=== PATIENT | male | born 1960 | race Caucasian/White ===

== ENCOUNTER 2016-07-18 07:44 | Inpatient (IN) | payer OTHER ==
[2016-07-18] MEDS: MIDAZOLAM 2 MG/2 ML VIAL IVP ONE ×3 (07:50→08:11)
[2016-07-18] MEDS ORDERED: LIDOCAINE 2% INJ 20 MG/ML SQ ONE ×3 (07:53→07:58)
[2016-07-18] MEDS: VERAPAMIL SYRINGE (5 MG/10 ML) INTRAARTER ONE ×2 (08:02→08:24)
[2016-07-18] MEDS ORDERED: PRASUGREL 10 MG TAB ONE (08:05)
[2016-07-18] MEDS ORDERED: HYDROmorphone 2 MG/ML 1 ML SYRINGE ONE (08:06)
[2016-07-18] MEDS ORDERED: HYDROmorphone 2 MG/ML 1 ML SYRINGE IVP ONE (08:07)
[2016-07-18] MEDS ORDERED: BIVALIRUDIN BOLUS 250 MG/50 ML IV ONE (08:08)
[2016-07-18] MEDS ORDERED: PRASUGREL 10 MG TAB PO ONE (08:09)
[2016-07-18] MEDS ORDERED: BIVALIRUDIN 250 MG in SODIUM CHLORIDE 0.9% 50 ML IV ONE (08:09)
[2016-07-18] MEDS ORDERED: NITROGLYCERIN 1000MCG/10ML SYRINGE INTRACORON ONE (08:12)
[2016-07-18] MEDS ORDERED: MORPHINE SULFATE 4 MG/ML SYRINGE ONE (08:17)
[2016-07-18] MEDS ORDERED: MORPHINE SULFATE 4 MG/ML SYRINGE IV ONE (08:20)
[2016-07-18] MEDS ORDERED: FUROSEMIDE 10 MG/ML 4 ML VIAL ONE (08:20)
[2016-07-18] MEDS ORDERED: FUROSEMIDE 10 MG/ML 4 ML VIAL IV ONE (08:22)
[2016-07-18] MEDS: VERAPAMIL 2.5 MG/ML 2 ML AMP ONE ×2 (08:24→08:27)
[2016-07-18] MEDS ORDERED: IOHEXOL 350 MG/ML 100 ML BOTTLE INJ ONE (08:28)
[2016-07-18] MEDS ORDERED: SODIUM CHLORIDE 0.9% 1,000 ML IV ONE (08:32)
[2016-07-18] MEDS ORDERED: RX INFO: IV CONTRAST WAS GIVEN 1 EACH MISC MISCELLANE PRN (08:39)
[2016-07-18] MEDS ORDERED: ATROPINE SULFATE 0.1 MG/ML 10ML SYRINGE IV PRN (08:39)
[2016-07-18] MEDS ORDERED: ZOLPIDEM 5 MG TAB PO PRN (08:39)
[2016-07-18] MEDS ORDERED: MAG HYDROX/AL HYDROX/SIMETH 30 ML CUP PO PRN (08:39)
[2016-07-18] MEDS ORDERED: NITROGLYCERIN SL TABS 0.4 MG TAB SUBLINGUAL PRN (08:39)
[2016-07-18] MEDS ORDERED: SODIUM CHLORIDE 0.9% 1,000 ML IV SCH (08:45)
--- NOTE | 2016-07-18 08:48 | P.CRDCN ---
History of Present Illness Consult date: 07/18/16 Chief complaint: chest pain History of present illness: This is a pleasant 55-year-old gentleman was no significant past medical history brought by ambulance to the emergency room with a chest discomfort. He was in his usual state of health total 6:00 this morning when he started experiencing chest discomfort. Ambulance was called and the patient was found to be an acute inferior ST elevation myocardial infarction he was brought to the emergency room. He underwent an emergent heart catheterization and was found to have acute total occlusion of the distal right coronary artery with a plaque rupture and thrombus formation. He underwent successful stenting of the RCA using a drug- eluting stent with a good angiographic results. No residual disease left in the right coronary artery and he has normal left coronary system. The patient tolerated the procedure very well. By the end of the procedure he was normotensive and his heart rate was within normal limits. The procedure was performed from the right radial artery. The patient is not aware of any history of diabetes or hypertension or dyslipidemia. As a matter of fact he never seen a physician. He does not smoke or drink alcohol. He does not have any family history of coronary artery disease. Medications and Allergies Allergies Allergy/AdvReac Type Severity Reaction Status Date / Time No Known Allergies Allergy Verified 07/18/16 07:57 Physical Exam Vitals: Intake and Output 07/17/16 07/18/16 07/18/16 22:59 06:59 14:59 Intake Total 100 Balance 100 Intake: IV 100 Other: Weight 82.024 kg Patient Weight 07/19/16 06:59 Weight 82.024 kg - Constitutional General appearance: no acute distress - Respiratory Respiratory: bilateral: CTA - Cardiovascular Rhythm: regular Heart sounds: normal: S1, S2 Results Current Medications Generic Name Dose Route Start Last Admin Trade Name Freq PRN Reason Stop Dose Admin Al Hydroxide/Mg Hydroxide 30 ml 07/18/16 08:39 Maalox PO Q4HR PRN Heartburn Aspirin 325 mg 07/18/16 09:00 Aspirin PO DAILY TRISHA Atorvastatin Calcium 80 mg 07/18/16 21:00 Lipitor PO HS TRISHA Atropine Sulfate 0.5 mg 07/18/16 08:39 Atropine IV ONCE PRN Symptomatic Bradycardia Sodium Chloride 1,000 mls @ 100 mls/hr 07/18/16 08:45 Saline 0.9% IV 07/18/16 14:46 .Q10H TRISHA Lisinopril 10 mg 07/18/16 09:00 Zestril PO DAILY TRISHA Metoprolol Tartrate 25 mg 07/18/16 09:00 Lopressor PO BID TRISHA Miscellaneous Information 1 each 07/18/16 08:39 Rx Info: Iv Contrast Was Given MISCELLANE 07/20/16 08:39 DAILY PRN Per Protocol Nitroglycerin 0.4 mg 07/18/16 08:39 Nitrostat SUBLINGUAL Q5M PRN Chest Pain Prasugrel 10 mg 07/19/16 09:00 Effient PO DAILY TRISHA Zolpidem Tartrate 5 mg 07/18/16 08:39 Ambien PO HS PRN Insomnia Intake and Output 07/17/16 07/18/16 07/18/16 22:59 06:59 14:59 Intake Total 100 Balance 100 Intake: IV 100 Other: Weight 82.024 kg Patient Weight 07/19/16 06:59 Weight 82.024 kg Assessment and Plan Plan: Assessment Acute inferior ST elevation myocardial infarction Status post a stenting of the RCA Plan Dual antiplatelet therapy Aggressive cholesterol control An echocardiogram was Doppler Follow-up with the patient
[2016-07-18] MEDS ORDERED: hydrALAZINE HCL 20 MG/ML 1 ML VIAL ONE (10:30)
[2016-07-18] MEDS: hydrALAZINE HCL 20 MG/ML 1 ML VIAL IVP STA ×2 (10:43→10:45)
[2016-07-18] MEDS: ONDANSETRON 4 MG/2 ML VIAL IVP PRN ×2 (10:54→20:29)
[2016-07-18] MEDS: ASPIRIN 325 MG TAB PO SCH (11:01)
[2016-07-18] MEDS: METOPROLOL TARTRATE 25 MG TAB PO SCH ×2 (11:11→20:33)
[2016-07-18] MEDS: LISINOPRIL 10 MG TAB PO SCH (12:17)
[2016-07-18] MEDS ORDERED: hydrALAZINE HCL 20 MG/ML 1 ML VIAL IVP PRN (15:32)
[2016-07-18] MEDS ORDERED: HYDROmorphone 1 MG/ML 1 ML SYRINGE IVP PRN (15:32)
--- NOTE | 2016-07-18 18:22 | CC ---
DATE OF SERVICE: 07/18/2016 PERFORMING PHYSICIAN: Hussain Dior M.D., studio model. PROCEDURES PERFORMED: 1. Selective right and left coronary angiogram. 2. Successful stenting of the distal right coronary artery using a 3.5 x 18 mm Xience TRAM, with good angiographic results. INDICATION: This is a pleasant 55-year-old gentleman who presented to the hospital with acute inferior ST-elevation myocardial infarction. The decision was made toward emergent heart catheterization and possible percutaneous coronary intervention. APPROACH: Right radial artery. COMPLICATIONS: None. LEVEL OF SEDATION: Moderate. PROCEDURE DESCRIPTION: After obtaining informed consent, the patient was brought to the cardiac clinical lab clerk. The right radial artery was cannulated using micropuncture technique. The micropuncture wire passed easily. Then I placed a 6 Somali sheath in the right radial artery. Subsequently I did selective right and left coronary angiogram using JR4 and JL3.5 catheters. Then I intervened on the RCA. Please see separate paragraph for that. SELECTIVE CORONARY ANGIOGRAM: 1. The right coronary artery is a large-caliber vessel and it is a dominant vessel. The right coronary artery is 100% occluded acutely in the distal portion. 2. The left main is angiographically normal. It bifurcates into the left circumflex and left anterior descending artery. 3. The left circumflex is a large-caliber vessel. It is a non-dominant vessel. The left circumflex is angiographically normal. It gives rise to 3 obtuse marginal branches. The first obtuse marginal branch has a high takeoff, almost likely ramus, and it is angiographically normally. The mid left circumflex gives rise to a second OM branch, which appeared to be angiographically normal. Distally there is a third OM which seems to be angiographically normal. 4. Left anterior descending artery. The proximal LAD appeared to be angiographically normal. The mid LAD is normal and gives rise to 2 diagonal branches; both are angiographically normal. The LAD distally is angiographically normal. PCI OF THE RCA: Anticoagulation was initiated using Angiomax. Subsequently I took a JR4 guiding catheter and the RCA was engaged. A Whisper wire was used to wire the right coronary artery. Subsequently I did PTCA ballooning using ( ) x 12 mm of balloon. Then I deployed a 3.5 x 18 mm Xience TRAM, where the stent was positioned under fluoroscopy guidance, and then it was deployed under 14 atmospheres for 20 seconds. The following angiogram showed good angiographic results without perforation and without dissection, with excellent flow. CONCLUSION: 1. Acute inferior ST-elevation myocardial infarction. 2. Acute total occlusion of the distal right coronary artery. 3. Successful stenting of the distal right coronary artery using a 3.75 x 18 mm Xience TRAM, with good angiographic results. 4. Normal left coronary artery system. POST-PROCEDURE MANAGEMENT: 1. Dual antiplatelet therapy. 2. Risk factor modifications. 3. Followup with the patient.
[2016-07-18] MEDS: ATORVASTATIN 80 MG TAB PO SCH (20:33)
[2016-07-19 04:56] LABS: Basophils % (A) 0 %; CH 34.1; Eosinophils # (A) 0.1 k/uL (0-0.7); Eosinophils % (A) 1 %; HCT 47.8 % (39.0-53.0); HDW 2.58; HGB 16.3 gm/dL (13.0-17.5); Luc # (Auto) 0.33; Luc % (Auto) 3; Lymphocytes # (A) 2.1 k/uL (1.0-4.8); Lymphocytes % (A) 17 %; MCH 33.4 pg (25.0-35.0); MCHC 34.1 g/dL (31.0-37.0); MCV 98.2 fL (80.0-100.0); Mean Platelet Volume 6.7; Monocytes # (A) 0.7 k/uL (0-1.0); Monocytes % (A) 6 %; Neutrophils # (A) 9.6 k/uL (1.3-7.7); Neutrophils % (A) 74 %; RBC 4.87 m/uL (4.30-5.90); WBC 12.9 k/uL (3.8-10.6); WBC (Perox) 13.22
[2016-07-19 05:28] LABS: Anion Gap 6 mmol/L; Blood Urea Nitrogen 12 mg/dL (9-20); Calcium 9.2 mg/dL (8.4-10.2); Carbon Dioxide 23 mmol/L (22-30); Chloride 104 mmol/L (98-107); Glucose 111 mg/dL (74-99); Non-African American GFR(MDRD) >60 (>60 ml/min/1.73 sqM); Potassium 4.1 mmol/L (3.5-5.1); Sodium 133 mmol/L (137-145)
[2016-07-19] MEDS: METOPROLOL TARTRATE 25 MG TAB PO SCH ×2 (09:12→20:13)
[2016-07-19] MEDS: ASPIRIN 325 MG TAB PO SCH (09:12)
[2016-07-19] MEDS: LISINOPRIL 10 MG TAB PO SCH (09:12)
[2016-07-19] MEDS: PRASUGREL 10 MG TAB PO SCH (09:12)
--- NOTE | 2016-07-19 10:56 | ECHOF ---
Referral Reason:stemi MEASUREMENTS -------- HEIGHT: 185.4 cm WEIGHT: 81.6 kg BP: 150/102 RVIDd: 2.7 cm (< 3.3) IVSd: 1.1 cm (0.6 - 1.1) LVIDd: 4.4 cm (3.9 - 5.3) LVPWd: 1.2 cm (0.6 - 1.1) IVSs: 1.7 cm LVIDs: 2.8 cm LVPWs: 1.6 cm LA Diam: 3.0 cm (2.7 - 3.8) LAESV Index (A-L): 18.38 ml/m Ao Diam: 3.5 cm (2.0 - 3.7) AV Cusp: 2.0 cm (1.5 - 2.6) LA Diam: 2.6 cm (2.7 - 3.8) MV EXCURSION: 13.189 mm (> 18.000) MV EF SLOPE: 82 mm/s (70 - 150) EPSS: 0.5 cm MV E Jay: 0.73 m/s MV DecT: 208 ms MV A Jay: 0.54 m/s MV E/A Ratio: 1.35 FINDINGS -------- Sinus rhythm. This was a technically adequate study. The left ventricular size is normal. There is borderline concentric left ventricular hypertrophy. Overall left ventricular systolic function is mild-moderately impaired with, an EF between 40 - 45 %. Basal inferior LV wall motion is hypokinetic. Mid posterior LV wall motion is hypokinetic. Mid inferior LV wall motion is hypokinetic. Apical inferior LV wall motion is hypokinetic. The right ventricle is normal in size. Normal LA size by volume 22+/-6 ml/m2. The right atrium is normal in size. The aortic valve is trileaflet and appears structurally normal. The mitral valve leaflets are mildly thickened. There is trace to mild mitral regurgitation. Trace tricuspid regurgitation present. There is no pulmonic regurgitation present. The aortic root size is normal. IVC Not well visulized. There is no pericardial effusion. CONCLUSIONS -------- 1. Sinus rhythm. 2. There is trace to mild mitral regurgitation. 3. Trace tricuspid regurgitation present. 4. There is no pulmonic regurgitation present. 5. The aortic root size is normal. 6. IVC Not well visulized. 7. There is no pericardial effusion. 8. This was a technically adequate study. 9. There is borderline concentric left ventricular hypertrophy. 10. Basal inferior LV wall motion is hypokinetic. 11. Mid posterior LV wall motion is hypokinetic. 12. Mid inferior LV wall motion is hypokinetic. 13. Normal LA size by volume 22+/-6 ml/m2. 14. The aortic valve is trileaflet and appears structurally normal. 15. The mitral valve leaflets are mildly thickened. FOREST ECONOMIST: Smith Quiroz RDCS
--- NOTE | 2016-07-19 15:47 | P.PN ---
Subjective Principal diagnosis: Inferior STEMI This is a pleasant 55-year-old gentleman who presented to the hospital with an acute inferior ST elevation myocardial infarction. He was taken to the cardiac catheterization lab where he underwent angioplasty with stent placement of the right coronary artery by Dr. Trujillo. Patient was seen and examined this morning, denies any chest pain or difficulty in breathing. He has been up ambulating without any difficulty. Blood pressure 122/80 heart rate in the 70s, 95% on room air. He is afebrile.WBC 12.9, hemoglobin 16.3, sodium 133, potassium 4.1, BUN 12, creatinine 0.8.patient is currently on aspirin 325 mg daily, Lipitor 80 mg daily, lisinopril 10 mg daily, metoprolol tartrate 25 mg one tablet by mouth twice a day and Effient 10 mg daily. Objective - Vital Signs Vital signs: Vital Signs Temp 97.1 F L 07/19/16 10:23 Pulse 77 07/19/16 13:34 Resp 18 07/19/16 11:48 BP 115/72 07/19/16 13:34 Pulse Ox 95 07/19/16 13:34 Intake & Output 07/18/16 07/19/16 07/19/16 18:59 06:59 18:59 Intake Total 837.69 0 540 Output Total 2049 500 900 Balance -1212.31 -500 -360 Weight 82.024 kg 81.7 kg 83.3 kg Intake: IV 837.69 0 Sodium Chloride 0.9% 1, 700 0 000 ml @ 100 mls/hr IV . Q10H TRISHA Rx#:[id number] Intake, IV Titration 0 Amount Bivalirudin 250 mg In 0 Sodium Chloride 0.9% 50 ml As IV .[facility] Rx# :[id number] Sodium Chloride 0.9% 1, 0 000 ml @ 100 mls/hr IV . Q10H [facility] Rx#:[id number] Oral 540 Output: Urine 2050 500 900 Other: Voiding Method Toilet Toilet # Voids 1 1 - Exam PHYSICAL EXAMINATION: HEENT: Head is atraumatic, normocephalic. Pupils equal, round. Neck is supple. There is no elevated jugular venous pressure. HEART EXAMINATION: Heart S1, S2 normal. No murmur or gallop heard. CHEST EXAMINATION: Lungs are clear to auscultation and precussion. No chest wall tenderness is noted on palpation or with deep breathing. ABDOMEN: Soft, nontender. Bowel sounds are heard. No organomegaly noted. EXTREMITIES: 2+ peripheral pulses with no evidence of peripheral edema and no calf tenderness noted. Radial site clean and dry, good distal pulse. NEUROLOGIC patient is awake, alert and oriented -3. . - Labs CBC & Chem 7: 07/19/16 04:30 07/19/16 04:30 Labs: Abnormal Lab Results - Last 24 Hours (Table) 07/19/16 07/19/16 Range/Units 04:30 04:30 WBC 12.9 H (3.8-10.6) k/uL Neutrophils # 9.6 H (1.3-7.7) k/uL Sodium 133 L (137-145) mmol/L Glucose 111 H (74-99) mg/dL Assessment and Plan (1) S/P right coronary artery (RCA) stent placement Status: Acute (2) Hyperlipemia Status: Acute (3) STEMI (ST elevation myocardial infarction) Status: Acute Plan: Echocardiogram with Doppler study was performed jugular ejection fraction of 40- 45% with basal inferior wall motion hypokinesia. We will continue the current medications. Continue to monitor for another 24-48 hours. DNP note has been reviewed, I agree with a documented findings and plan of care. Patient was seen and examined.
[2016-07-19] MEDS: ATORVASTATIN 80 MG TAB PO SCH (20:13)
[2016-07-20] MEDS: PRASUGREL 10 MG TAB PO SCH (09:17)
[2016-07-20] MEDS: LISINOPRIL 10 MG TAB PO SCH (09:17)
[2016-07-20] MEDS: ASPIRIN 325 MG TAB PO SCH (09:17)
[2016-07-20] MEDS: METOPROLOL TARTRATE 25 MG TAB PO SCH ×2 (09:18→20:47)
[2016-07-20] MEDS: ATORVASTATIN 80 MG TAB PO SCH (20:47)
[2016-07-21 00:27] VITALS: TEMP 97.3
[2016-07-21] MEDS: METOPROLOL TARTRATE 25 MG TAB PO SCH (08:21)
[2016-07-21] MEDS: LISINOPRIL 10 MG TAB PO SCH (08:22)
[2016-07-21] MEDS: PRASUGREL 10 MG TAB PO SCH (08:22)
[2016-07-21] MEDS: ASPIRIN 325 MG TAB PO SCH (08:22)
[2016-07-21 10:05] VITALS: RESP 18
[2016-07-21 11:48] VITALS: BP 116/85; PULSE 73
--- NOTE | 2016-07-21 14:34 | P.PN ---
Subjective Principal diagnosis: Inferior STEMI This is a pleasant 55-year-old gentleman who presented to the hospital with an acute inferior ST elevation myocardial infarction. He was taken to the cardiac catheterization lab where he underwent angioplasty with stent placement of the right coronary artery by Dr. Trujillo. Patient was seen and examined this morning, denies any chest pain or difficulty in breathing. He has been up ambulating without any difficulty. Hemodynamically stable. No arrhythmias on the monitor. Objective - Vital Signs Vital signs: Vital Signs Temp 97.3 F L 07/21/16 00:00 Pulse 73 07/21/16 11:46 Resp 18 07/21/16 11:46 BP 116/85 07/21/16 11:46 Pulse Ox 98 07/21/16 11:46 Intake & Output 07/20/16 07/21/16 07/21/16 18:59 06:59 18:59 Intake Total 126 750 420 Output Total 0 Balance 126 750 420 Weight 82.7 kg Intake: Intake, IV Titration 0 Amount Sodium Chloride 0.9% 1, 0 000 ml As IV .[facility] Rx#:[id number] Oral 126 750 420 Output: Urine 0 Other: Voiding Method Toilet # Voids 1 - Exam PHYSICAL EXAMINATION: HEENT: Head is atraumatic, normocephalic. Pupils equal, round. Neck is supple. There is no elevated jugular venous pressure. HEART EXAMINATION: Heart S1, S2 normal. No murmur or gallop heard. CHEST EXAMINATION: Lungs are clear to auscultation and precussion. No chest wall tenderness is noted on palpation or with deep breathing. ABDOMEN: Soft, nontender. Bowel sounds are heard. No organomegaly noted. EXTREMITIES: 2+ peripheral pulses with no evidence of peripheral edema and no calf tenderness noted. Radial site clean and dry, good distal pulse. NEUROLOGIC patient is awake, alert and oriented -3. . - Labs CBC & Chem 7: 07/19/16 04:30 07/19/16 04:30 Assessment and Plan (1) S/P right coronary artery (RCA) stent placement Status: Acute (2) Hyperlipemia Status: Acute (3) STEMI (ST elevation myocardial infarction) Status: Acute Plan: Echocardiogram with Doppler study was performed jugular ejection fraction of 40- 45% with basal inferior wall motion hypokinesia. Patient may be able to be discharged home today. A follow-up appointment will be made with Dr. Trujillo in the office post discharge. He will be discharged home on aspirin 325 mg daily, Lipitor 80 mg daily, lisinopril 10 mg daily, metoprolol tartrate 25 mg one tablet by mouth twice a day, Effient 10 mg daily and sublingual nitroglycerin as needed for chest pain. Patient has been provided prescriptions for all of the above medications and educated regarding them as well. DNP note has been reviewed, I agree with a documented findings and plan of care. Patient was seen and examined.
--- NOTE | 2016-07-22 09:08 | PN ---
This patient has come with acute myocardial infarction. Patient is feeling well. Denies any chest pain. Blood pressure is 116/70 mmHg. First and second heart sounds are normal. Lungs are clinically clear to auscultation and percussion. Patient is being ambulated and if he is feeling better, I will discharge the patient tomorrow.
== END 2016-07-21 16:06 | disposition home or self-care (01) | DRG 247 ==
LOC: 6ICU 07:44 → 6SEL 07-19 10:12
PROVIDERS: ADMIT Internal Medicine Interventional Cardiology; ATTEND Internal Medicine Interventional Cardiology
PROC: 027034Z Dilation of Coronary Artery, One Artery with Drug-eluting Intraluminal Device, Percutaneous Approach (ICD-10-PCS; principal; 2016-07-18 07:30)
PROC: B2111ZZ Fluoroscopy of Multiple Coronary Arteries using Low Osmolar Contrast (ICD-10-PCS; 2016-07-18 07:30)
DX: I21.19 ST elevation (STEMI) myocardial infarction involving other coronary artery of inferior wall (principal); I25.10 Atherosclerotic heart disease of native coronary artery without angina pectoris; E78.5 Hyperlipidemia, unspecified
CPT/HCPCS: 80048; 85025; 93306; 93454

== ENCOUNTER → 2019-01-09 | Outpatient (CLI) | payer OTHER ==
[2019-01-09 23:12] LABS: African American GFR (CKD) 94.4 (60.0-200.0); Anion Gap 7.6 mmol/L (4.00-12.00); Calcium 9.4 mg/dL (8.7-10.3); Carbon Dioxide 23.4 mmol/L (21.6-31.8); Chol/HDL Ratio 4.74; LDL Cholesterol,Calculated 26.4 mg/dL (0.0-131.0); Magnesium 1.9 mg/dL (1.5-2.4); Non-African American GFR(CKD) 81.4 (60.0-200.0); Potassium 3.9 mmol/L (3.5-5.5); VLDL Calculation 74.6 mg/dL (5.00-40.00)
== END ==
LOC: LABMAIN 12:40
PROVIDERS: ATTEND Nurse Practitioner Adult Health
DX: I10 Essential (primary) hypertension (principal)
CPT/HCPCS: 36415; 80048; 80061; 83735

== ENCOUNTER 2019-11-28 10:09 | Emergency (ER) | payer OTHER ==
[2019-11-28 10:16] VITALS: RESP 18; TEMP 98.4
--- NOTE | 2019-11-28 10:37 | ED ---
Extremity Problem HPI - General Chief complaint: Extremity Problem,Nontraumatic Stated complaint: hand & arm pain/blood pressure problems Source: patient Mode of arrival: ambulatory Limitations: no limitations - History of Present Illness Initial comments: Patient is 59-year-old male presenting to the emergency department with a chief complaint of arm pain and swelling. Patient states symptoms initially began about 3 weeks ago with pain in bilateral shoulders. Patient states she has some limited range of motion in his shoulders especially with abduction particularly and he is right upper extremity. Patient also states about 1.5 weeks ago he is developed some swelling in bilateral hands with some weakness in the hands. Patient states he has not been able to open bottles. Says his sensation is completely intact. Denies any trauma whatsoever. Denies any neck pain or any rashes along the joints. Denies any night sweats or chills. Denies any recent sickness. Denies taking medication to alleviate the symptoms. - Related Data Home Medications Medication Instructions Recorded Confirmed Aspirin 81 mg PO DAILY 11/28/19 11/28/19 Losartan/Hydrochlorothiazide 1 tab PO DAILY 11/28/19 11/28/19 [Losartan-Hctz 100-25 mg Tab] Previous Rx's Medication Instructions Recorded Atorvastatin [Lipitor] 80 mg PO HS #30 tab 07/21/16 predniSONE 50 mg PO DAILY #5 tab 11/28/19 Allergies Allergy/AdvReac Type Severity Reaction Status Date / Time No Known Allergies Allergy Verified 11/28/19 10:16 Review of Systems ROS Statement: Those systems with pertinent positive or pertinent negative responses have been documented in the HPI. ROS Other: All systems not noted in ROS Statement are negative. Past Medical History Past Medical History: Hyperlipidemia, Hypertension, Myocardial Infarction (HI) History of Any Multi-Drug Resistant Organisms: None Reported Past Surgical History: Heart Catheterization With Stent Past Anesthesia/Blood Transfusion Reactions: No Reported Reaction Date of Last Stent Placement:: 07/18/2016 Past Psychological History: No Psychological Hx Reported Smoking Status: Never smoker Past Alcohol Use History: Daily Past Drug Use History: None Reported - Past Family History Mother Family Medical History: Hypertension General Exam Limitations: no limitations General appearance: alert, in no apparent distress Head exam: Present: atraumatic, normocephalic, normal inspection Eye exam: Present: normal appearance, PERRL, EOMI Pupils: Present: normal accommodation ENT exam: Present: normal exam, normal oropharynx, mucous membranes moist, TM's normal bilaterally, normal external ear exam Neck exam: Present: normal inspection, full ROM. Absent: tenderness Respiratory exam: Present: normal lung sounds bilaterally. Absent: respiratory distress, wheezes, rales Cardiovascular Exam: Present: regular rate, normal rhythm, normal heart sounds GI/Abdominal exam: Present: soft. Absent: distended, tenderness, guarding, rebound Extremities exam: Present: tenderness (Mild tenderness in bilateral hands as well as shoulders, Bilaterally.), normal capillary refill, other (+2 ulnar and r adial pulses bilateral.). Absent: normal inspection (Mild to moderate swelling in bilateral hands. No erythema or ecchymosis. No signs of trauma), full ROM (Limited range of motion particularly in his right shoulder with abduction above 90. Decreased roaster operator strength in bilateral hands), pedal edema, calf tenderness Back exam: Present: normal inspection, full ROM. Absent: tenderness Neurological exam: Present: alert, oriented X3 Psychiatric exam: Present: normal affect, normal mood Skin exam: Present: warm, dry, intact, normal color Course Vital Signs 11/28/19 11/28/19 11/28/19 10:14 10:16 11:16 Temperature 98.4 F Pulse Rate 66 60 Respiratory 18 18 18 Rate Blood Pressure 174/96 148/98 O2 Sat by Pulse 99 97 Oximetry 11/28/19 13:02 Temperature 98.4 F Pulse Rate 58 L Respiratory 18 Rate Blood Pressure 126/83 O2 Sat by Pulse 97 Oximetry Medical Decision Making - Medical Decision Making Patient is 59-year-old male presenting to the emergency Department with a chief complaint of hand pain and swelling. Patient has some swelling bilateral hands with decreased roaster operator strength. Some shoulder pain particularly on the right side with limited range of motion above 90. No signs of any infectious processes on physical examination. Patient has no issues with his lower extremity. No one- sided weakness or paresthesias. Patient has elevated ESR of 25. CRP 37.5. Rheumatoid factor and and YARITZA pending. CBC CMP is unremarkable. I suspect a rheumatoid etiology for the patient's symptoms. Patient will be started on Friday weapons mechanic emergency department and discharged with a 5 day course of prednisone. I advised him to follow up with his primary care physician and see a fleet service clerk. Return parameters were thoroughly discussed with patient was understanding and agreeable. Dr. Amezcua also examined the patient and is in agreement with the treatment plan. - Lab Data Result diagrams: 11/28/19 11:31 11/28/19 11:31 Lab Results 11/28/19 11/28/19 Range/Units 11:31 11:31 WBC 7.8 (3.8-10.6) k/uL RBC 4.65 (4.30-5.90) m/uL Hgb 14.9 (13.0-17.5) gm/dL Hct 44.5 (39.0-53.0) % MCV 95.8 (80.0-100.0) fL MCH 32.0 (25.0-35.0) pg MCHC 33.4 (31.0-37.0) g/dL RDW 12.5 (11.5-15.5) % Plt Count 313 (150-450) k/uL Neutrophils % 73 % Lymphocytes % 18 % Monocytes % 6 % Eosinophils % 2 % Basophils % 1 % Neutrophils # 5.7 (1.3-7.7) k/uL Lymphocytes # 1.4 (1.0-4.8) k/uL Monocytes # 0.5 (0-1.0) k/uL Eosinophils # 0.1 (0-0.7) k/uL Basophils # 0.0 (0-0.2) k/uL ESR 23 H (0-15) mm/hr Sodium 137 (137-145) mmol/L Potassium 4.4 (3.5-5.1) mmol/L Chloride 105 (98-107) mmol/L Carbon Dioxide 25 (22-30) mmol/L Anion Gap 7 mmol/L BUN 13 (9-20) mg/dL Creatinine 0.69 (0.66-1.25) mg/dL Est GFR (CKD-EPI)AfAm >90 (>60 ml/min/1.73 sqM) Est GFR (CKD-EPI)NonAf >90 (>60 ml/min/1.73 sqM) Glucose 97 (74-99) mg/dL Calcium 9.3 (8.4-10.2) mg/dL Total Bilirubin 1.4 H (0.2-1.3) mg/dL AST 19 (17-59) U/L ALT 22 (4-49) U/L Alkaline Phosphatase 123 (38-126) U/L C-Reactive Protein 37.5 H (<10.0) mg/L Total Protein 7.0 (6.3-8.2) g/dL Albumin 4.2 (3.5-5.0) g/dL Disposition Clinical Impression: Bilateral hand swelling, Bilateral arm pain Disposition: HOME SELF-CARE Condition: Stable Instructions (If sedation given, give patient instructions): Arthralgia (ED), Arm Pain (ED) Additional Instructions: Take prescribed medication as directed. Follow up with the primary care physician and a fleet service clerk. Return to emergency department if symptoms worsen. Prescriptions: predniSONE 50 mg PO DAILY #5 tab Is patient prescribed a controlled substance at d/c from ED?: No Referrals: None,Stated [Primary Care Provider] - 1-2 days Time of Disposition: 12:37
[2019-11-28] MEDS ORDERED: KETOROLAC 30 MG/ML 1 ML VIAL IVP STA (11:20)
[2019-11-28 12:07] LABS: ALT 22 U/L (4-49); AST 19 U/L (17-59); African American GFR (CKD) >90 (>60 ml/min/1.73 sqM); Albumin 4.2 g/dL (3.5-5.0); Alkaline Phosphatase 123 U/L (38-126); Anion Gap 7 mmol/L; Blood Urea Nitrogen 13 mg/dL (9-20); Calcium 9.3 mg/dL (8.4-10.2); Carbon Dioxide 25 mmol/L (22-30); Chloride 105 mmol/L (98-107); Glucose 97 mg/dL (74-99); Non-African American GFR(CKD) >90 (>60 ml/min/1.73 sqM); Potassium 4.4 mmol/L (3.5-5.1); Sodium 137 mmol/L (137-145); Total Bilirubin 1.4 mg/dL (0.2-1.3)
[2019-11-28 12:15] LABS: C Reactive Protein 37.5 mg/L (<10.0)
[2019-11-28 12:23] LABS: Basophils % (A) 1 %; Eosinophils # (A) 0.1 k/uL (0-0.7); Eosinophils % (A) 2 %; HCT 44.5 % (39.0-53.0); HGB 14.9 gm/dL (13.0-17.5); Lymphocytes # (A) 1.4 k/uL (1.0-4.8); Lymphocytes % (A) 18 %; MCHC 33.4 g/dL (31.0-37.0); MCV 95.8 fL (80.0-100.0); Monocytes # (A) 0.5 k/uL (0-1.0); Monocytes % (A) 6 %; Neutrophils # (A) 5.7 k/uL (1.3-7.7); Neutrophils % (A) 73 %; Platelet Count 313 k/uL (150-450); RBC 4.65 m/uL (4.30-5.90); RDW 12.5 % (11.5-15.5); WBC 7.8 k/uL (3.8-10.6)
[2019-11-28] MEDS ORDERED: methylPREDNISolone SOD SUCCI 125 MG/2 ML VIAL IV STA (12:29)
[2019-11-28 12:36] LABS: Erythrocyte Sedimentation Rate 23 mm/hr (0-15)
[2019-11-28 13:03] VITALS: BP 126/83; PULSE 58
[2019-11-29 17:17] LABS: Rheumatoid Factor, Qnt <4 IU/mL (0-13)
== END 2019-11-28 13:03 | disposition home or self-care (01) ==
LOC: EC 10:09
DX: M79.601 Pain in right arm (principal); M79.602 Pain in left arm; M79.89 Other specified soft tissue disorders; R70.0 Elevated erythrocyte sedimentation rate; I10 Essential (primary) hypertension; I25.2 Old myocardial infarction; Z79.82 Long term (current) use of aspirin; Z79.899 Other long term (current) drug therapy; Z95.5 Presence of coronary angioplasty implant and graft
CPT/HCPCS: 36415; 80053; 85652; 85025; 86140; 86431; 86038; 96374; 96375; 99283; J2930; J1885